=== PATIENT | female | born 1935 | race Caucasian/White ===

== ENCOUNTER 2018-06-08 08:44 | Outpatient (CLI) | payer MEDICARE | END 2018-06-08 08:45 | disposition home or self-care (01) | LOC: BICMAMMO 08:44 | PROVIDERS: ATTEND Family Medicine | DX: Z12.31 Encounter for screening mammogram for malignant neoplasm of breast (principal); Z85.3 Personal history of malignant neoplasm of breast | CPT/HCPCS: 77063; 77067 ==

== ENCOUNTER 2019-06-26 13:27 | Outpatient (CLI) | payer MEDICARE ==
--- NOTE | 2019-06-26 14:21 | MMO ---
Bilateral MAMMO Bilat Screen [facility]. CLINICAL HISTORY: Patient is 84 years old and is seen for screening. The patient has no family history of breast cancer. The patient has a history of right Mastectomy - malignant and right Excisional Biopsy - malignant. VIEWS: The views performed were: left craniocaudal with tomosynthesis and left mediolateral oblique with tomosynthesis. FILMS COMPARED: The present examination has been compared to a prior imaging study performed at [facility] on 06/08/2018. MAMMOGRAM FINDINGS: The breast is heterogeneously dense, which could obscure a lesion on mammography. There are no suspicious masses, calcifications or areas of architectural distortion. There are benign appearing calcifications in the left breast. There are no suspicious masses, suspicious calcifications, or new areas of architectural distortion. IMPRESSION: THERE IS NO MAMMOGRAPHIC EVIDENCE OF MALIGNANCY. A ROUTINE FOLLOW-UP MAMMOGRAM IN 1 YEAR IS RECOMMENDED. THE RESULTS OF THIS EXAM WERE SENT TO THE PATIENT. ACR BI-RADS Category 2 - Benign finding MAMMOGRAPHY NOTE: 1. A negative mammogram report should not delay a biopsy if a dominant of clinically suspicious mass is present. 2. Approximately 10% to 15% of breast cancers are not detected by mammography. 3. Adenosis and dense breasts may obscure an underlying neoplasm. Reported by: ROSARIO PALACIOS MD Electonically Signed: [id number]
== END 2019-06-26 13:28 | disposition home or self-care (01) ==
LOC: BICMAMMO 13:27
PROVIDERS: ATTEND Family Medicine
DX: Z12.31 Encounter for screening mammogram for malignant neoplasm of breast (principal); Z90.11 Acquired absence of right breast and nipple
CPT/HCPCS: 77063; 77067

== ENCOUNTER 2019-07-06 13:28 | Outpatient (CLI) | payer MEDICARE ==
--- NOTE | 2019-07-06 14:12 | CT ---
CT chest noncontrast HISTORY: Right chest wall pain. FINDINGS: Lungs are hyperinflated with significant linear scarring at the lung bases. No pleural flui d, lobar consolidation, or pneumothorax. Lack of contrast limits evaluation of the soft tissues. There is calcification within the arterial st ructures. No bulky mediastinal adenopathy. Right shoulder prosthesis partially visualized. Old right lateral upper rib fractures. Subacute or chronic right lateral lower rib fractures. No acute fr acture is evident. Prominent degenerative changes throughout the thoracic spine including rightward convex scoliotic curvature. Partial chronic appearing compression fractures of the mid thoracic verte bral bodies. IMPRESSION: Old right rib fractures. No acute abnormalities are demonstrated. Emphysema with chronic appearing lung parenchymal scarring.
== END 2019-07-06 13:29 | disposition home or self-care (01) ==
LOC: BICCT 13:28
PROVIDERS: ATTEND Family Medicine
DX: R07.89 Other chest pain (principal); J43.9 Emphysema, unspecified; Z85.3 Personal history of malignant neoplasm of breast
CPT/HCPCS: 71250

== ENCOUNTER 2021-07-28 13:12 | Outpatient (CLI) | payer MEDICARE | END 2021-07-28 13:13 | disposition home or self-care (01) | LOC: BICMAMMO 13:12 | PROVIDERS: ATTEND Family Medicine | DX: Z12.31 Encounter for screening mammogram for malignant neoplasm of breast (principal); Z85.3 Personal history of malignant neoplasm of breast; Z90.11 Acquired absence of right breast and nipple | CPT/HCPCS: 77063; 77067 ==

== ENCOUNTER 2021-08-06 11:37 | Outpatient (CLI) | payer MEDICARE ==
[2021-08-06 13:02] LABS: Hemoglobin 14.8 g/dL (12.0-15.5); Mean Corpuscular HGB CONC 32.9 g/dL (32.0-36.0); Mean Corpuscular Hemoglobin 30.3 pg (27.0-33.0); Mean Platelet Volume 10.6 fl (7.4-10.4); Platelet Count 283 10x3/uL (150-450); RBC Distribution Width 13.8 % (11.5-14.5); Red Blood Cell (RBC) Count 4.89 10x6/uL (3.90-5.03); White Blood Cell (WBC) Count 7.7 10x3/uL (3.5-10.5)
[2021-08-06 13:09] LABS: Anion Gap 14 mmol/L (10-20); BUN (Urea Nitrogen) 18 mg/dL (9.8-20.1); Calc. Creatinine Clearance 0 mL/min (70-130); Calcium 10.2 mg/dL (7.8-10.44); Carbon Dioxide 28 mmol/L (23-31); Chloride 99 mmol/L (98-107); Glucose 96 mg/dL (83-110); Potassium 3.7 mmol/L (3.5-5.1); Sodium 137 mmol/L (136-145)
[2021-08-06 13:19] LABS: Prothrombin Time 10.9 sec (9.5-12.1)
[2021-08-07 00:24] LABS: SARS-CoV-2 PCR by NAA Not Detected (NotDetected)
== END 2021-08-06 11:38 | disposition home or self-care (01) ==
LOC: LABBT 11:37
PROVIDERS: ATTEND Internal Medicine Cardiovascular Disease
DX: Z01.812 Encounter for preprocedural laboratory examination (principal); I47.1 Supraventricular tachycardia; Z20.822 Contact with and (suspected) exposure to COVID-19
CPT/HCPCS: 80048; 85027; 85610; U0003; U0005

== ENCOUNTER 2021-08-11 06:13 | Day surgery (SDC) | payer MEDICARE ==
[2021-08-10 10:52] VITALS: BMI 26.1
[2021-08-11] MEDS ORDERED: Heparin 10,000 UNITS/ 10 ML VIAL ONE (08:36)
[2021-08-11] MEDS ORDERED: Fentanyl 100 MCG/2 ML VIAL ONE (09:14)
[2021-08-11] MEDS ORDERED: Propofol 1,000 MG/100 ML VIAL IV ONE ×2 (09:14→10:43)
[2021-08-11] MEDS ORDERED: Phenylephrine 10 MG/ML VIAL ONE (09:20)
[2021-08-11] MEDS ORDERED: PROPOFOL 200 MG/20 ML VIAL ONE (09:45)
[2021-08-11] MEDS ORDERED: Dexamethasone 20 MG/5 ML VIAL ONE (09:45)
[2021-08-11] MEDS ORDERED: Ondansetron PF 4 MG/2 ML Vial ONE (09:45)
== END 2021-08-11 16:55 | disposition home or self-care (01) ==
LOC: CCL 06:13
PROVIDERS: ATTEND Internal Medicine Cardiovascular Disease
PROC: 02583ZZ Destruction of Conduction Mechanism, Percutaneous Approach (ICD-10-PCS; principal; 2021-08-11)
PROC: 02K83ZZ Map Conduction Mechanism, Percutaneous Approach (ICD-10-PCS; 2021-08-11)
PROC: 4A023FZ Measurement of Cardiac Rhythm, Percutaneous Approach (ICD-10-PCS; 2021-08-11)
PROC: 4A0234Z Measurement of Cardiac Electrical Activity, Percutaneous Approach (ICD-10-PCS; 2021-08-11)
DX: I47.1 Supraventricular tachycardia (principal); I48.3 Typical atrial flutter; I25.10 Atherosclerotic heart disease of native coronary artery without angina pectoris; I35.0 Nonrheumatic aortic (valve) stenosis; E78.5 Hyperlipidemia, unspecified; I10 Essential (primary) hypertension; M10.9 Gout, unspecified; E03.9 Hypothyroidism, unspecified; Z79.82 Long term (current) use of aspirin; Z79.899 Other long term (current) drug therapy; Z88.5 Allergy status to narcotic agent
CPT/HCPCS: 93005; 93613; 93653; 93655; C1731; C1894; C2630; J1100; J1644; J2370; J2405; J2704; J3010